=== PATIENT | male | born 1995 | race Caucasian/White ===

== ENCOUNTER 2020-09-30 15:33 | Inpatient (IN) ==
[2020-09-30 16:25] LABS: Bilirubin,Urine Negative (Negative); Blood,Urine Negative (Negative); Clarity,Urine Clear (Clear); Color,Urine Yellow (Yellow); Glucose,Urine (UA) Normal (Normal); Ketones,Urine Negative (Negative); Leukocyte Esterase,Urine Negative (Negative); Nitrite,Urine Negative (Negative); PH,Urine 6.5 pH Units (5.0-8.0); Protein,Urine Trace mg/dL (Neg-Trace); Specific Gravity,Urine 1.028 (1.010-1.025); Urobilinogen,Urine Normal (Normal)
[2020-09-30 16:36] LABS: Amphetamine Screen,Urine Positive ng/mL (Cutoff=1000); Barbiturate Screen,Urine Negative ng/mL (Cutoff=200); Benzodiazepines Screen,Urine Negative ng/mL (Cutoff=200); Cannabinoid Screen,Urine Positive ng/mL (Cutoff = 50); Cocaine Screen,Urine Negative ng/mL (Cutoff= 300); Opiate Screen,Urine Negative ng/mL (Cutoff=300); Phencyclidine Screen,Urine Negative ng/mL (Cutoff=25)
[2020-10-01 07:23] LABS: Influenza A PCR Negative (Negative); Influenza B PCR Negative (Negative); Resp. Syncytial Virus PCR Negative (Negative)
[2020-10-01 07:24] LABS: SARS-CoV-2 by PCR (In House) Negative (Negative)
[2020-10-01] MEDS ORDERED: MOM Conc 10 ML UD.LIQ PO PRN (12:19)
[2020-10-01] MEDS ORDERED: Acetaminophen 325 MG TABLET PO PRN (12:19)
[2020-10-01] MEDS ORDERED: Haloperidol Lactate 5 MG/ML VIAL IM PRN (12:19)
[2020-10-01] MEDS ORDERED: *HR* LORazepam 1 MG TABLET PO PRN (12:19)
[2020-10-01] MEDS ORDERED: Mag Hydrox/Al Hydrox/Simeth 30 ML UDC PO PRN (12:19)
[2020-10-01] MEDS ORDERED: haloperidoL 5 MG TABLET PO PRN (12:19)
[2020-10-01] MEDS ORDERED: QUEtiapine Fumarate 25 MG TABLET PO PRN (12:19)
[2020-10-01] MEDS ORDERED: *HR* LORazepam 2 MG/ML VIAL IM PRN (12:19)
[2020-10-01] MEDS ORDERED: hydrOXYzine pamoate 25 MG CAPSULE PO PRN (12:19)
[2020-10-01] MEDS ORDERED: Nicotine 2 MG GUM BC PRN (14:57)
[2020-10-01] MEDS: OLANZapine 10 MG TAB.RAPDIS PO SCH (21:51)
[2020-10-01] MEDS: hydrOXYzine pamoate 25 MG CAPSULE PO SCH (21:51)
[2020-10-02] MEDS: FLUoxetine HCl 10 MG CAPSULE PO SCH (09:08)
[2020-10-02] MEDS: hydrOXYzine pamoate 25 MG CAPSULE PO SCH ×2 (09:08→21:22)
[2020-10-02] MEDS: OLANZapine 10 MG TAB.RAPDIS PO SCH (21:23)
[2020-10-03] MEDS: FLUoxetine HCl 10 MG CAPSULE PO SCH (10:12)
[2020-10-03] MEDS: hydrOXYzine pamoate 25 MG CAPSULE PO SCH ×2 (10:12→20:42)
[2020-10-03] MEDS: OLANZapine 10 MG TAB.RAPDIS PO SCH (20:42)
[2020-10-04] MEDS: FLUoxetine HCl 10 MG CAPSULE PO SCH (09:04)
[2020-10-04] MEDS: hydrOXYzine pamoate 25 MG CAPSULE PO SCH (09:04)
[2020-10-04 09:42] VITALS: BP 123/85
== END 2020-10-04 15:45 | disposition home or self-care (01) | DRG 751 ==
LOC: EMEROOARM 15:33 → 1ANU 10-01 11:25
PROVIDERS: ADMIT Psychiatry & Neurology Psychiatry; ATTEND Psychiatry & Neurology Psychiatry